=== PATIENT | male | born 1990 | race Caucasian/White ===

== ENCOUNTER 2022-01-26 01:30 | Emergency (ER) | payer SELFPAY ==
[~2022-01-26] VITALS: Ht 165.1 cm; Wt 67.8 kg
[2022-01-26] MEDS ORDERED: KETOROLAC 30MG/ML VIAL IV STA (02:35)
[2022-01-26] MEDS ORDERED: SODIUM CHLORIDE 0.9% 1,000 ML IV ONE (02:45)
[2022-01-26 03:13] LABS: BASOPHILS % 0.5 % (0.0-2.0); EOSINOPHILS % 0.5 % (0.0-5.0); HEMATOCRIT. 47.6 % (42.0-52.0); HEMOGLOBIN. 16.7 g/dL (14.0-18.0); LYMPHOCYTES % 22.2 % (20.0-50.0); MEAN CORPUSCULAR HEMOGLOBIN 31.1 pg (28.0-32.0); MEAN CORPUSCULAR VOLUME 88.4 fL (80.0-94.0); MEAN PLATELET VOLUME 8.5 fl (7.4-10.4); MONOCYTES % 7.9 % (2.0-8.0); NEUTROPHILS % 68.9 % (40.0-76.0); PLATELET 286 x1000/uL (130-400); RED BLOOD CELL COUNT 5.38 mill/uL (4.7-6.1); RED CELL DISTRIBUTION WIDTH 13.2 % (11.6-14.6)
[2022-01-26 03:21] LABS: CHLORIDE 104 mEq/L (98-107)
[2022-01-26 03:24] LABS: ETHANOL BLOOD < 10 mg/dL
[2022-01-26 03:30] LABS: CREATINE KINASE 84 IU/L (39-308)
[2022-01-26] MEDS ORDERED: IBUP-2028 MT (06:29)
[2022-01-26] MEDS ORDERED: ACETAMINOPHEN 325MG TABLET PO ONE (06:30)
[2022-01-26 06:51] VITALS: BP 152/98
== END 2022-01-26 06:54 | disposition home or self-care (01) ==
LOC: ER 01:30
DX: R07.89 Other chest pain (principal); F15.10 Other stimulant abuse, uncomplicated; F17.200 Nicotine dependence, unspecified, uncomplicated; R51.9 Headache, unspecified
CPT/HCPCS: 36415; 70450; 71045; 80053; 80320; 82550; 84484; 85025; 96361; 96374; 99285; J7030; G0480